=== PATIENT | female | born 1990 | race Caucasian/White ===

== ENCOUNTER 2018-12-08 01:35 | Emergency (ER) | payer OTHER ==
[~2018-12-08] VITALS: Ht 162.6 cm; Wt 58.2 kg
[~2018-12-08 01:35] MED LIST: PRENAT PO
[2018-12-08 01:42] VITALS: Ht 162.6 cm; Wt 58.2 kg
--- NOTE | 2018-12-08 03:49 | ERD ---
ER Documentation Chief Complaint Chief Complaint fluid leaking from her hair roots & diffuse headaches x1 week,no injury/hx HPI 28-year-old female presents with complaint of acne on her forehead as well as liquid in the roots of her hair. 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 Denies fevers, body aches, chills. Denies past medical history. Denies allergies. Denies medications. Denies surgeries. Denies alcohol, tobacco, drug use. Up to date on vaccines. ROS All systems reviewed and are negative except as per history of present illness. Medications Home Meds Reported Medications Multivit/Min/Fol Ac/Iron/Pren* ( S*) 1 Tab Tab, 1 TAB PO DAILY, TAB 06/09/14 Allergies Allergies: Coded Allergies: No Known Allergy (Unverified , 04/07/14) PMhx/Soc Medical and Surgical Hx: pt denies Medical Hx History of Surgery: Yes ( X 2, CYST REMOVAL) Anesthesia Reaction: No Hx Neurological Disorder: No Hx Respiratory Disorders: No Hx Cardiac Disorders: No Hx Psychiatric Problems: No Hx Miscellaneous Medical Probl: No Hx Alcohol Use: No Hx Substance Use: No Hx Tobacco Use: No Smoking Status: Never smoker FmHx Family History: No diabetes, No coronary disease, No other Physical Exam Vitals Vital Signs Date Temp Pulse Resp B/P (MAP) Pulse Ox O2 O2 Flow FiO2 Time Delivery Rate 12/08/18 98.4 110 18 120/59 100 01:42 (79) Physical Exam Const: No acute distress Head: Atraumatic Eyes: Normal Conjunctiva ENT: Normal External Ears, Nose and Mouth. Neck: Full range of motion. No meningismus. Resp: Clear to auscultation bilaterally Cardio: Regular rate and rhythm, no murmurs Abd: Soft, non tender, non distended. Normal bowel sounds Skin: Erythematous papules no located on the forehead. Back: No midline or flank tenderness Ext: No cyanosis, or edema Neur: Awake and alert Psych: Normal Mood and Affect Procedures/MDM 28-year-old female presents with complaint of acne on her forehead as well as liquid in the roots of her hair. 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 Denies fevers, body aches, chills. Denies past medical history. Denies allergies. Denies medications. Denies surgeries. Denies alcohol, tobacco, drug use. Up to date on vaccines. I told patient that she most likely has acne and she would need to be followed up by a printed circuit board layout designer. I have low suspicion for infection or any other emergent condition. Patient discharged with strict ER precautions. Patient advised to follow up with PMD. All questions answered at discharge. Departure Diagnosis: Primary Impression: Acne Acne type: acne vulgaris Qualified Codes: L70.0 - Acne vulgaris Condition: Stable Patient Instructions: Acne Referrals: BRANDON HAWK MD,MIGUEL STAFFORD,GEETHA STEWART,YUSUF ASHTON,SG POLK,JONNY PEREZ Additional Instructions: FOLLOW UP WITH YOUR PRIMARY CARE PHYSICIAN TOMORROW.Return to this facility if you are not improving as expected. RENAY PACHECO Dec 08, 2018 03:49
[2018-12-08 04:02] VITALS: BP 105/72; PULSE 66; RESP 18
== END 2018-12-08 04:05 | disposition home or self-care (01) ==
LOC: FTE 01:35
DX: L70.0 Acne vulgaris (principal)
CPT/HCPCS: 99282